=== PATIENT | male | born 1955 | race Caucasian/White ===

== ENCOUNTER → 2016-07-27 | Outpatient (CLI) | payer BC ==
--- NOTE | 2016-07-27 14:31 | RADIOLOGY REPORT (SQ) ---
EXAM DESCRIPTION: U/S EXTREMITY NONVASCULAR LTD COMPLETED DATE/TIME: 07/27/2016 2:11 pm REASON FOR STUDY: GENERALIZED ENLARGED LYMPH NODES (R59.1) R59.1 GENERALIZED ENLARGED LYMPH NODES COMPARISON: CT abdomen and pelvis 05/04/2016 TECHNIQUE: Static and real time suarez scale ultrasound Doppler spectral analysis, and color Doppler a cquired in the right and left axilla LIMITATIONS: None. FINDINGS: Right and left axilla ultrasound was performed to evaluate for adenopathy. If significant less nodes were found, ultrasound-guided biopsy was requested. Patient was scanned by both myself as well as the technologist On the right side, a benign-appearing 1.7 x 1.2 x 0.9 cm axillary lymph node is present. No worrisom e features of cortical thickening or loss of central hilar fat. No increased vascularity. Biopsy wa s not performed. On the left side, a benign-appearing 1.7 x 1.6 x 0.9 cm axillary lymph node is present. No worrisome features of cortical thickening or loss of central hilar fat. No increased vascularity. Biopsy was not performed. IMPRESSION: NO SIGNIFICANT FINDING IN THE RIGHT OR LEFT AXILLA. NO AXILLARY LYMPH NODE BIOPSY WAS P ERFORMED TODAY. TECHNICAL DOCUMENTATION: JOB ID: [id number] [employer]- All Rights Reserved
== END ==
LOC: EDSTATUS 07:54 → RAD 12:05 → EDSTATUS 12:08
PROVIDERS: ATTEND Internal Medicine Medical Oncology
DX: R59.1 Generalized enlarged lymph nodes (principal)
CPT/HCPCS: 76882

== ENCOUNTER 2020-02-18 21:41 | Observation (INO) | payer BC ==
[2020-02-18] MEDS ORDERED: RINGERS SOLUTION,LACTATED 1,000 ML IV ONE (22:04)
--- NOTE | 2020-02-18 22:05 | ER Document Report ---
ED Medical Screen (RME) - General Chief Complaint: High Blood Sugar Stated Complaint: ELEVATED BLOOD SUGAR Time Seen by Provider: 02/18/20 22:00 Mode of Arrival: Ambulatory Information source: Patient Notes: HPI; 64-year-old male presents to the emergency room with elevated blood sugars. States over the past several days he has had increased thirst. States he checked his blood sugar at home it was 597. Takes Metformin for his diabetes states has not missed any of his doses. He denies any shortness of breath, difficulty breathing. No chest pain, no COVID-19 exposure PE: Alert and oriented x3. Lungs: Clear to auscultation without rales, rhonchi, wheezes. Heart: Regular rate rhythm without murmurs, rubs, gallops. I have greeted and performed a rapid initial assessment of this patient. A comprehensive ED assessment and evaluation of the patient, analysis of test results and completion of the medical decision making process will be conducted by additional ED providers. I have specifically instructed the patient or family members with the patient to immediately return to any nursing staff should anything change in the patient's condition or with their chief complaint. TRAVEL OUTSIDE OF THE [place] IN LAST 30 DAYS: No - Related Data Allergies/Adverse Reactions: No Known Allergies Allergy (Verified 02/18/20 21:50) Home Medications: "BLOOD SUGAR MEDS" Past Medical History - Social History Frequency of alcohol use: Rare Drug Abuse: None - Past Medical History Cardiac Medical History: Reports: Hx Hypertension - DX ABOUT 10 YEARS AGO Renal/ Medical History: Denies: Hx Peritoneal Dialysis GI Medical History: Reports: Hx Gastroesophageal Reflux Disease - DX ABOUT EIGHT YEARS Psychiatric Medical History: Reports: Hx Depression - ABOUT FOUR YEARS Past Surgical History: Reports: Hx Abdominal Surgery - HERNIA (AT AGE 4). Denies: Hx Adenoidectomy Course - Laboratory Results Laboratory Results Interpreted: 02/18/20 21:44 POC Glucose > 550 H*
[2020-02-18 23:28] LABS: ABSOLUTE EOSINOPHILS # (AUTO) 0.2 10^3/uL (0.0-0.6); ABSOLUTE LYMPHOCYTES (AUTO) 1.8 10^3/uL (0.5-4.7); ABSOLUTE MONOCYTES (AUTO) 0.3 10^3/uL (0.1-1.4); ABSOLUTE NEUT (AUTO) 2.5 10^3/uL (1.7-8.2); BASOPHILS % (AUTO) 0.4 % (0-2); EOSINOPHILS % (AUTO) 4.7 % (0-6); HEMATOCRIT 37.6 % (37.9-51.0); HEMOGLOBIN 13.3 g/dL (13.5-17.0); LYMPHOCYTES % (AUTO) 37.1 % (13-45); MEAN CORPUSCULAR HGB CONC 35.4 g/dL (32.0-36.0); MEAN CORPUSCULAR VOLUME 88 fl (80-97); MONOCYTES % (AUTO) 6.7 % (3-13); PLATELET COUNT 170 10^3/uL (150-450); RED BLOOD COUNT 4.29 10^6/uL (4.35-5.55); SEGMENTED NEUTROPHILS % (AUTO) 51.1 % (42-78); TOTAL CELLS COUNTED % (AUTO) 100 %; WHITE BLOOD COUNT 4.9 10^3/uL (4.0-10.5)
[2020-02-18 23:36] LABS: APPEARANCE,URINE CLEAR; BILIRUBIN,URINE NEGATIVE (NEGATIVE); COLOR,URINE STRAW; GLUCOSE, URINE >=500 mg/dL (NEGATIVE); KETONES,URINE NEGATIVE (NEGATIVE); LEUKOCYTE ESTERASE,URINE NEGATIVE (NEGATIVE); NITRITE,URINE NEGATIVE (NEGATIVE); PROTEIN,URINE NEGATIVE (NEGATIVE); URINE SPECIFIC GRAVITY 1.029; UROBILINOGEN,URINE NEGATIVE mg/dL (<2.0)
[2020-02-18 23:38] LABS: VENOUS BLOOD BASE EXCESS -3.2 mmol/L; VENOUS BLOOD HCO3 21.7 mmol/L (20-32); VENOUS BLOOD PH 7.36 (7.30-7.42)
[2020-02-18 23:47] LABS: ALBUMIN 4.5 g/dL (3.5-5.0); ALKALINE PHOSPHATASE 371 U/L (38-126); ANION GAP 13 (5-19); ASPARTATE AMINO TRANSFERASE 75 U/L (17-59); BILIRUBIN,DIRECT 0.2 mg/dL (0.0-0.4); BILIRUBIN,TOTAL 0.6 mg/dL (0.2-1.3); BLOOD UREA NITROGEN 25 mg/dL (7-20); CALCIUM 9.5 mg/dL (8.4-10.2); CARBON DIOXIDE 26 mmol/L (22-30); CHLORIDE 91 mmol/L (98-107); POTASSIUM 4.1 mmol/L (3.6-5.0); TOTAL PROTEIN 7.5 g/dL (6.3-8.2)
--- NOTE | 2020-02-18 23:56 | RADIOLOGY REPORT (SQ) ---
CHEST X-RAY 2 view on 02/18/2020 at 11:18 PM CLINICAL INDICATION: Shortness of breath COMPARISON: None FINDINGS: The lungs are clear. Cardiac, hilar and mediastinal contours are within normal limits. Pulmonary vascularity is within normal limits. No bony abnormality is noted. IMPRESSION: No active disease.
--- NOTE | 2020-02-18 23:56 | ER Document Report ---
ED General - General Chief Complaint: High Blood Sugar Stated Complaint: ELEVATED BLOOD SUGAR Time Seen by Provider: 02/18/20 22:00 Primary Care Provider: SHIVANI BAKER FNP-C [Primary Care Provider] - Follow up as needed Mode of Arrival: Ambulatory Information source: Patient Notes: Patient presents to the ER for evaluation of increased thirst over the last brennon ral days. The patient states he does take Metformin for type 2 diabetes. He states he had a physical approximately 1 month ago at which time his blood sugar was approximately 180. He states he does not routinely check his blood sugar. He began to feel generally unwell today and his bought a glucometer and they found his sugar to be 597 at home. The patient has noticed some activity intolerance and increased shortness of breath as well as worsening in his usual far sighted vision over the last several weeks. He denies chest pain. He denies cough or congestion. He denies fever. He denies abdominal pain. He denies dysuria. Nursing notes reviewed and past medical, social, and family histories reviewed and validated. TRAVEL OUTSIDE OF THE [place] IN LAST 30 DAYS: No - Related Data Allergies/Adverse Reactions: No Known Allergies Allergy (Verified 02/18/20 21:50) Home Medications: "BLOOD SUGAR MEDS" Past Medical History - General Information source: Patient - Social History Smoking Status: Never Smoker Chew tobacco use (# tins/day): No Frequency of alcohol use: Rare Drug Abuse: None Lives with: Family Family History: Reviewed & Not Pertinent Patient has suicidal ideation: No Patient has homicidal ideation: No - Past Medical History Cardiac Medical History: Reports: Hx Hypertension - DX ABOUT 10 YEARS AGO Pulmonary Medical History: Reports: None EENT Medical History: Reports: None Neurological Medical History: Reports: None Endocrine Medical History: Reports: Hx Diabetes Mellitus Type 2 Renal/ Medical History: Denies: Hx Peritoneal Dialysis Malignancy Medical History: Reports None GI Medical History: Reports: Hx Gastroesophageal Reflux Disease - DX ABOUT EIGHT YEARS Musculoskeletal Medical History: Reports None Skin Medical History: Reports None Psychiatric Medical History: Reports: Hx Depression - ABOUT FOUR YEARS Traumatic Medical History: Reports: None Infectious Medical History: Reports: None Past Surgical History: Reports: Hx Abdominal Surgery - HERNIA (AT AGE 4). Denies: Hx Adenoidectomy - Immunizations Immunizations up to date: Yes Hx Diphtheria, Pertussis, Tetanus Vaccination: Yes Review of Systems - Review of Systems Notes: Constitutional: Negative for fever. HENT: Negative for sore throat. Eyes: Positive for visual changes over the last week. Cardiovascular: Negative for chest pain. Respiratory: Positive for occasional shortness of breath. Gastrointestinal: Negative for abdominal pain, vomiting or diarrhea. Genitourinary: Negative for dysuria. Musculoskeletal: Negative for back pain. Skin: Negative for rash. Neurological: Negative for headaches, weakness or numbness. 10 point ROS negative except as marked above and in HPI. Physical Exam - Vital signs Vitals: BP 130/84 H 02/18/20 23:48 - Notes Notes: CONSTITUTIONAL: Well appearing. No acute distress. SKIN: Warm, dry, and intact without rash EYES: Extraocular movements are grossly intact, clear conjunctiva HENT: Normocephalic, atraumatic, moist mucus membranes NECK: No obvious swelling, normal range of motion PULMONARY: Normal chest rise and fall. Breath sounds clear and equal alfredo aterally. No respiratory distress or stridor CARDIOVASCULAR: Regular rate. No murmurs, rubs, gallops. Distal extremities are warm and well perfused. ABDOMINAL: Soft, nontender NEUROLOGIC: Normal speech, moves all extremities. MUSCULOSKELETAL: No gross deformities, atraumatic PSYCHIATRIC: Normal mood and affect Course - Vital Signs Vital signs: Temp Pulse Resp BP Pulse Ox 121/70 02/19/20 04:18 - Laboratory Results Result Diagrams: 02/18/20 23:03 02/18/20 23:03 Laboratory Results Interpreted: 02/18/20 02/18/20 02/18/20 21:44 23:03 23:03 RBC 4.29 L Hgb 13.3 L Hct 37.6 L Sodium 130.0 L Chloride 91 L BUN 25 H Creatinine 1.47 H Est GFR ( Amer) 59 L Est GFR (MDRD) Non-Af 49 L Glucose 681 H* POC Glucose > 550 H* AST 75 H ALT 107 H Alkaline Phosphatase 371 H Urine Glucose (UA) 02/18/20 02/19/20 23:03 03:09 RBC Hgb Hct Sodium Chloride BUN Creatinine Est GFR ( Amer) Est GFR (MDRD) Non-Af Glucose POC Glucose 479 H* AST ALT Alkaline Phosphatase Urine Glucose (UA) >=500 H Critical Laboratory Results Reviewed: Yes Attending or Supervising Physician who Reviewed Labs: POLA MOSES - Radiology Results Critical Radiology Results Reviewed: No Critical Results - Consults Hospitalist consult Time consulted: 05:20 Reason for consultation: 02/19/20 05:20 This case was discussed with Dr. Denney who agrees to evaluate the patient in the emergency room for admission. Discharge - Discharge Clinical Impression: Type 2 diabetes mellitus with hyperglycemia Qualifiers: Diabetes mellitus roasterman insulin use: without senior living use Qualified Code(s): E11.65 - Type 2 diabetes mellitus with hyperglycemia Condition: Stable Disposition: ADMITTED OBSERVATION
[2020-02-19 00:09] LABS: GLUCOSE 681 mg/dL (75-110)
[2020-02-19] MEDS ORDERED: NORMAL SALINE 1000 ML 1,000 ML IV ONE (00:37)
[2020-02-19] MEDS ORDERED: DEXTROSE 40% GEL 15 GM TUBE PO PRN ×2 (03:25)
[2020-02-19] MEDS ORDERED: DEXTROSE 50%-WATER 25 GM/50 ML DISP.SYRIN IV PRN ×2 (03:25)
[2020-02-19] MEDS ORDERED: GLUCAGON,HUMAN RECOMB 1 MG INJ IM PRN (03:25)
[2020-02-19] MEDS ORDERED: INSULIN REG, HUMAN 100 UNIT/ML 3 ML VIAL (PYX) ONE (05:24)
[2020-02-19] MEDS ORDERED: TEMAZEPAM 7.5 MG CAPSULE PO PRN (05:38)
[2020-02-19] MEDS ORDERED: ONDANSETRON HCL INJ/PF 4 MG/2 ML SDV IV PRN (05:38)
[2020-02-19] MEDS ORDERED: IPRATROPIUM/ALBUTEROL 0.5-2.5 MG/3 ML AMPUL NEB PRN (05:38)
[2020-02-19] MEDS ORDERED: ACETAMINOPHEN 325 MG TABLET PO PRN (05:38)
[2020-02-19] MEDS ORDERED: PROMETHAZINE HCL INJ 25 MG/1 ML VIAL IV PRN (05:38)
[2020-02-19] MEDS ORDERED: NORMAL SALINE 1000 ML 1,000 ML IV PRN (05:38)
[2020-02-19] MEDS ORDERED: OXYCODONE-ACETAMINOPHEN 5-325 MG TABLET PO PRN (05:38)
[2020-02-19] MEDS: NORMAL SALINE 100 ML with INSULIN REGULAR, HUMAN 100 UNIT IV PRN ×6 (05:43→14:21)
--- NOTE | 2020-02-19 06:05 | PDOC H&P ---
History of Present Illness Admission Date/PCP: CALLUM MARTINEZ History of Present Illness: STONE ORTIZ is a 64 year old male past medical history of hypertension, diabetes, hyperlipidemia, presenting to ED after noticing high blood sugars on home monitoring. Patient is stating that he has been feeling thirsty for the last several days, having polyuria, polydipsia, blurry vision and neurolyse fatigue, today he received his glucometer and when he checked his sugar at home it was 597, patient has history of diabetes for the last 15 years, takes metformin however has poor diet, last hemoglobin A1c was about 8%, denies any fever, chills, nausea, vomiting, chest pain, shortness of breath, constipation. Past Medical History Cardiac Medical History: Reports: Hypertension - DX ABOUT 10 YEARS AGO Pulmonary Medical History: Reports: None EENT Medical History: Reports: None Neurological Medical History: Reports: None Endocrine Medical History: Reports: Diabetes Mellitus Type 2 Malignancy Medical History: Reports: None GI Medical History: Reports: Gastroesophageal Reflux Disease - DX ABOUT EIGHT YEARS Musculoskeltal Medical History: Reports: None Skin Medical History: Reports: None Psychiatric Medical History: Reports: Depression - ABOUT FOUR YEARS Traumatic Medical History: Reports: None Infectious Medical History: Reports: None Social History Lives with: Family Smoking Status: Never Smoker Family History Family History: Reviewed & Not Pertinent Parental Family History Reviewed: Yes Children Family History Reviewed: Yes Sibling(s) Family History Reviewed.: Yes Medication/Allergy Home Medications: Dexilant 01/08/11 Hydralazine HCl 01/08/11 Zoloft 01/08/11 Fluoxetine HCl [Prozac] 10 mg PO 03/16/13 Ondansetron HCl [Zofran] 4 mg PO Q4HP PRN #20 tablet 05/04/16 Oxycodone HCl/Acetaminophen [Percocet 5-325 mg Tablet] 1 - 2 tab PO ASDIR PRN #15 tab 05/04/16 Tamsulosin HCl [Flomax 0.4 mg Cap.sr] 0.4 mg PO DAILY #7 cap.sr.24h 05/04/16 Allergies/Adverse Reactions: No Known Allergies Allergy (Verified 02/18/20 21:50) Review of Systems Review of Systems: as per hpi Physical Exam Vital Signs: Temp Pulse Resp BP Pulse Ox 121/70 02/19/20 04:18 Intake & Output 02/17/20 02/18/20 02/19/20 06:59 06:59 06:59 Intake Total 2000 Balance 2000 Weight 124.738 kg General appearance: PRESENT: morbidly obese Head exam: PRESENT: atraumatic, normocephalic Respiratory exam: PRESENT: clear to auscultation alfredo. ABSENT: rales, rhonchi, wheezes Cardiovascular exam: PRESENT: RRR. ABSENT: diastolic murmur, rubs, systolic murmur GI/Abdominal exam: PRESENT: normal bowel sounds, soft. ABSENT: distended, guarding, mass, organolmegaly, rebound, tenderness Neurological exam: PRESENT: alert, awake, oriented to person, oriented to place, oriented to time, oriented to situation, CN II-XII grossly intact. ABSENT: motor sensory deficit Results Laboratory Results: 02/18/20 23:03 02/18/20 23:03 02/18/20 02/18/20 02/18/20 23:03 23:03 23:03 WBC 4.9 RBC 4.29 L Hgb 13.3 L Hct 37.6 L MCV 88 MCH 31.0 MCHC 35.4 RDW 13.0 Plt Count 170 Seg Neutrophils % 51.1 VBG pH 7.36 VBG pCO2 39.0 VBG HCO3 21.7 VBG Base Excess -3.2 Sodium 130.0 L Potassium 4.1 Chloride 91 L Carbon Dioxide 26 Anion Gap 13 BUN 25 H Creatinine 1.47 H Est GFR ( Amer) 59 L Glucose 681 H* Calcium 9.5 Total Bilirubin 0.6 AST 75 H Alkaline Phosphatase 371 H Total Protein 7.5 Albumin 4.5 Urine Color Urine Appearance Urine pH Ur Specific [place] Urine Protein Urine Glucose (UA) Urine Ketones Urine Blood Urine Nitrite Ur Leukocyte Esterase Urine WBC (Auto) 02/18/20 23:03 WBC RBC Hgb Hct MCV MCH MCHC RDW Plt Count Seg Neutrophils % VBG pH VBG pCO2 VBG HCO3 VBG Base Excess Sodium Potassium Chloride Carbon Dioxide Anion Gap BUN Creatinine Est GFR ( Amer) Glucose Calcium Total Bilirubin AST Alkaline Phosphatase Total Protein Albumin Urine Color STRAW Urine Appearance CLEAR Urine pH 6.0 Ur Specific [place] 1.029 Urine Protein NEGATIVE Urine Glucose (UA) >=500 H Urine Ketones NEGATIVE Urine Blood NEGATIVE Urine Nitrite NEGATIVE Ur Leukocyte Esterase NEGATIVE Urine WBC (Auto) 0 02/18/20 23:03 Troponin I < 0.012 Impressions: Chest X-Ray 02/18/20 22:54 IMPRESSION: No active disease. Assessment and Plan - Diagnosis (1) Hyperglycemia Is this a current diagnosis for this admission?: Yes Plan: Due to uncontrolled diabetes. Presented with glucose level of 681. Normal anion gap. Aggressive volume restriction guided by volume status. Insulin drip to be transition to subcutaneous insulin once euglycemic. We will obtain hemoglobin A1c, if more than 10% patient may need to be discharged on insulin. Diabetic education. (2) Uncontrolled diabetes mellitus Qualifiers: Diabetes mellitus type: type 2 Is this a current diagnosis for this admission?: Yes Plan: History of uncontrolled diabetes. Diabetic diet, Accu-Chek, hypoglycemia protocol. Basal, prandial and correctional insulin. Adjust insulin as needed. Diabetic education. (3) Hyperlipidemia Is this a current diagnosis for this admission?: Yes Plan: Resume home meds. Will obtain lipid panel. (4) Hypertension Is this a current diagnosis for this admission?: Yes Plan: Resume home meds. Adjust meds as needed. Outpatient PCP follow-up. (5) NGUYEN (acute kidney injury) Is this a current diagnosis for this admission?: Yes Plan: Denies any history of CAD. Likely due to intravascular volume depletion due to severe hyperglycemia. Volume resuscitation guided by volume status. Monitor volume status and electrolytes. Replace electrolytes as needed. If no improvement obtain renal ultrasound and consult nephrology. Avoid nephrotoxic meds. - Time Time Spent with patient: 35 or more minutes Anticipated Discharge Disposition: Home, Self Care Anticipated Discharge Timeframe: within 24 hours
[2020-02-19] MEDS: HEPARIN SOD (PORCINE) 5,000 UNIT/ML 1 ML VIAL SUBCUT SCH ×3 (06:23→22:18)
[2020-02-19 08:57] LABS: CHOLESTEROL 170.61 mg/dL (0-200); TRIGLYCERIDES 336 mg/dL (<150)
[2020-02-19 08:58] LABS: ANION GAP 6 (5-19); BLOOD UREA NITROGEN 21 mg/dL (7-20); CALCIUM 9.3 mg/dL (8.4-10.2); CARBON DIOXIDE 31 mmol/L (22-30); CHLORIDE 100 mmol/L (98-107); GLUCOSE 370 mg/dL (75-110); POTASSIUM 3.8 mmol/L (3.6-5.0)
--- NOTE | 2020-02-19 09:07 | EKG REPORT ---
SEVERITY:- OTHERWISE NORMAL ECG - SINUS RHYTHM VENTRICULAR PREMATURE COMPLEX : Confirmed by: Raymond Waite MD 19-Feb-2020 09:06:39
[2020-02-19 09:08] LABS: DIRECT LDL 66 mg/dL (<100)
[2020-02-19 09:12] LABS: VLDL CHOLESTEROL 67.2 mg/dL (10-31)
[2020-02-19] MEDS ORDERED: INSULIN GLARGINE,HUM.REC.ANLOG 1,000 UNIT/10 ML VIAL (PYX) SUBCUT ONE ×2 (13:00→16:15)
[2020-02-19] MEDS: DOCUSATE SODIUM 100 MG CAPSULE PO SCH (15:45)
[2020-02-19] MEDS: FAMOTIDINE 20 MG TABLET PO SCH ×2 (15:45→22:18)
[2020-02-19] MEDS: METFORMIN HCL 500 MG TABLET PO SCH ×2 (15:46→17:02)
[2020-02-20] MEDS: HEPARIN SOD (PORCINE) 5,000 UNIT/ML 1 ML VIAL SUBCUT SCH ×2 (05:16→15:00)
[2020-02-20 07:58] LABS: ANION GAP 7 (5-19); BLOOD UREA NITROGEN 18 mg/dL (7-20); CARBON DIOXIDE 25 mmol/L (22-30); CHLORIDE 105 mmol/L (98-107); GLUCOSE 234 mg/dL (75-110); POTASSIUM 3.7 mmol/L (3.6-5.0)
[2020-02-20] MEDS ORDERED: GLIMEPIRIDE 1 MG TABLET PO SCH (08:00)
[2020-02-20] MEDS: INSULIN LISPRO 100 UNIT/ML 3 ML VIAL SUBCUT SCH ×2 (08:51→12:02)
[2020-02-20] MEDS: METFORMIN HCL 500 MG TABLET PO SCH (08:52)
[2020-02-20] MEDS: DOCUSATE SODIUM 100 MG CAPSULE PO SCH (09:03)
[2020-02-20] MEDS: FAMOTIDINE 20 MG TABLET PO SCH (09:03)
--- NOTE | 2020-02-20 11:05 | PDOC DISCHARGE SUMMARY ---
Impression - Admit/DC Date/PCP Admission Date/Primary Care Provider: 02/19/20 06:06 CALLUM MARTINEZ Discharge Date: 02/20/20 - Discharge Diagnosis (1) Type 2 diabetes mellitus with hyperglycemia Is this a current diagnosis for this admission?: Yes (2) NGUYEN (acute kidney injury) Is this a current diagnosis for this admission?: Yes (3) Hypertriglyceridemia Is this a current diagnosis for this admission?: Yes (4) Hypertension Is this a current diagnosis for this admission?: Yes - Additional Information Discharge Diet: Diabetic Discharge Activity: Activity As Tolerated Referrals: SHIVANI BAKER FNP-C [Primary Care Provider] - 02/27/20 9:00 am Prescriptions: Glimepiride 2 mg PO DAILY #30 tablet Metformin HCl [Glucophage 850 mg Tablet] 850 mg PO BIDACBS #60 tab Home Medications: Amlodipine Besylate [Norvasc 10 mg Tablet] 10 mg PO QPM 02/19/20 Fenofibrate Nanocrystallized [Fenofibrate] 145 mg PO QPM 02/19/20 Gabapentin [Neurontin 400 mg Capsule] 2,000 mg PO QHS 02/19/20 Gabapentin [Neurontin 400 mg Capsule] 400 mg PO DAILY 02/19/20 Losartan/Hydrochlorothiazide [Losartan-Hctz 100-25 mg Tab] 1 each PO DAILY 02/19/20 Omeprazole 10 mg PO QPM 02/19/20 Sertraline HCl [Zoloft 50 mg Tablet] 100 mg PO QPM 02/19/20 Glimepiride 2 mg PO DAILY #30 tablet 02/20/20 Metformin HCl [Glucophage 850 mg Tablet] 850 mg PO BIDACBS #60 tab 02/20/20 History of Present Illiness History of Present Illness: According to admitting provider: STONE ORTIZ is a 64 year old male past medical history of hypertension, diabetes, hyperlipidemia, presenting to ED after noticing high blood sugars on home monitoring. Patient is stating that he has been feeling thirsty for the last several days, having polyuria, polydipsia, blurry vision and neurolyse fatigue, today he received his glucometer and when he checked his sugar at home it was 597, patient has history of diabetes for the last 15 years, takes metformin however has poor diet, last hemoglobin A1c was about 8%, denies any fever, chills, nausea, vomiting, chest pain, shortness of breath, constipation. Hospital Course Hospital Course: Patient was admitted to the hospital with complaints of high blood glucose reading as outpatient. On presentation he was noted to be significantly hyp erglycemic with blood sugar in the 600s. There was no evidence of DKA. Patient was started on treatment for his hyperglycemia secondary to uncontrolled type 2 diabetes mellitus with IV fluids and placed on an insulin drip. Hemoglobin A1c was 8.6. Patient notably takes 500 mg of Metformin daily at home. His blood sugar improved on the insulin drip and was later discontinued yesterday. He was bridged with a dose of Lantus. I have transition patient to a new regimen of Metformin 850 mg twice a day as well as glimepiride 2 mg daily. Diabetes education done. I have discussed with patient about monitoring for any evidence of hypoglycemic symptoms. This morning patient does complain of generalized myalgias, some nausea, sore throat and mild cough. Notably, his chest x-ray and urinalysis were negative on presentation. Given this symptoms, I will check him for COVID-19 and influenza as this could be indicative of a viral syndrome. However his vital signs to remain normal he is blood oxygen level have been normal on room air so patient is still cleared for discharge. Physical Exam Vital Signs: Temp Pulse Resp BP Pulse Ox 97.8 F 77 18 146/83 H 100 02/20/20 00:46 02/20/20 07:32 02/20/20 07:32 02/20/20 07:32 02/20/20 07:32 Intake & Output 02/19/20 02/20/20 02/21/20 06:59 06:59 06:59 Intake Total 1999 66 Balance 1999 66 Weight 124 kg 121.7 kg General appearance: PRESENT: no acute distress, cooperative Neck exam: ABSENT: JVD Respiratory exam: PRESENT: clear to auscultation alfredo, symmetrical, unlabored. ABSENT: accessory muscle use, retraction, tachypnea, wheezes Cardiovascular exam: PRESENT: +S1, +S2. ABSENT: tachycardia GI/Abdominal exam: PRESENT: soft. ABSENT: rebound, rigid, tenderness Neurological exam: PRESENT: alert, awake, oriented to person, oriented to place, oriented to time, oriented to situation Psychiatric exam: ABSENT: agitated, anxious Results Laboratory Results: WBC 4.9 10^3/uL (4.0-10.5) 02/18/20 23:03 RBC 4.29 10^6/uL (4.35-5.55) L 02/18/20 23:03 Hgb 13.3 g/dL (13.5-17.0) L 02/18/20 23:03 Hct 37.6 % (37.9-51.0) L 02/18/20 23:03 MCV 88 fl (80-97) 02/18/20 23:03 MCH 31.0 pg (27.0-33.4) 02/18/20 23: MCHC 35.4 g/dL (32.0-36.0) 02/18/20 23:03 RDW 13.0 % (11.5-14.0) 02/18/20 23:03 Plt Count 170 10^3/uL (150-450) 02/18/20 23:03 Lymph % (Auto) 37.1 % (13-45) 02/18/20 23:03 [place] % (Auto) 6.7 % (3-13) 02/18/20 23:03 Eos % (Auto) 4.7 % (0-6) 02/18/20 23:03 Baso % (Auto) 0.4 % (0-2) 02/18/20 23:03 Absolute Neuts (auto) 2.5 10^3/uL (1.7-8.2) 02/18/20 23:03 Absolute Lymphs (auto) 1.8 10^3/uL (0.5-4.7) 02/18/20 23:03 Absolute Monos (auto) 0.3 10^3/uL (0.1-1.4) 02/18/20 23:03 Absolute Eos (auto) 0.2 10^3/uL (0.0-0.6) 02/18/20 23:03 Absolute Basos (auto) 0.0 10^3/uL (0.0-0.2) 02/18/20 23:03 Seg Neutrophils % 51.1 % (42-78) 02/18/20 23:03 VBG pH 7.36 (7.30-7.42) 02/18/20 23:03 VBG pCO2 39.0 mmHg (35-63) 02/18/20 23:03 VBG HCO3 21.7 mmol/L (20-32) 02/18/20 23:03 VBG Base Excess -3.2 mmol/L 02/18/20 23:03 Sodium 136.6 mmol/L (137-145) L 02/20/20 06:45 Potassium 3.7 mmol/L (3.6-5.0) 02/20/20 06:45 Chloride 105 mmol/L (98-107) 02/20/20 06:45 Carbon Dioxide 25 mmol/L (22-30) 02/20/20 06:45 Anion Gap 7 (5-19) 02/20/20 06:45 BUN 18 mg/dL (7-20) 02/20/20 06:45 Creatinine 1.11 mg/dL (0.52-1.25) 02/20/20 06:45 Est GFR ( Amer) > 60 (>60) 02/20/20 06:45 Est GFR (MDRD) Non-Af > 60 (>60) 02/20/20 06:45 Glucose 234 mg/dL (75-110) H 02/20/20 06:45 POC Glucose 236 mg/dL (70-110) H 02/20/20 06:57 Hemoglobin A1c % 8.6 % (4.7-6.0) H 02/19/20 08:32 Calcium 9.0 mg/dL (8.4-10.2) 02/20/20 06:45 Magnesium 2.0 mg/dL (1.6-2.3) 02/20/20 06:45 Total Bilirubin 0.6 mg/dL (0.2-1.3) 02/18/20 23:03 Direct Bilirubin 0.2 mg/dL (0.0-0.4) 02/18/20 23:03 Neonat Total Bilirubin Not Reportable 02/18/20 23:03 Neonat Direct Bilirubin Not Reportable 02/18/20 23:03 Neonat Indirect Bili Not Reportable 02/18/20 23:03 AST 75 U/L (17-59) H 02/18/20 23:03 ALT 107 U/L (<50) H 02/18/20 23:03 Alkaline Phosphatase 371 U/L (38-126) H 02/18/20 23:03 Troponin I < 0.012 ng/mL 02/18/20 23:03 Total Protein 7.5 g/dL (6.3-8.2) 02/18/20 23:03 Albumin 4.5 g/dL (3.5-5.0) 02/18/20 23:03 Triglycerides 336 mg/dL (<150) H 02/19/20 08:32 Cholesterol 170.61 mg/dL (0-200) 02/19/20 08:32 LDL Cholesterol Direct 66 mg/dL (<100) 02/19/20 08:32 VLDL Cholesterol 67.2 mg/dL (10-31) H 02/19/20 08:32 HDL Cholesterol 39 mg/dL (>40) L 02/19/20 08:32 TSH 4.69 uIU/mL (0.47-4.68) H 02/18/20 23:03 Urine Color STRAW 02/18/20 23:03 Urine Appearance CLEAR 02/18/20 23:03 Urine pH 6.0 (5.0-9.0) 02/18/20 23:03 Ur Specific [place] 1.029 02/18/20 23:03 Urine Protein NEGATIVE mg/dL (NEGATIVE) 02/18/20 23:03 Urine Glucose (UA) >=500 mg/dL (NEGATIVE) H 02/18/20 23:03 Urine Ketones NEGATIVE mg/dL (NEGATIVE) 02/18/20 23:03 Urine Blood NEGATIVE (NEGATIVE) 02/18/20 23:03 Urine Nitrite NEGATIVE (NEGATIVE) 02/18/20 23:03 Urine Bilirubin NEGATIVE (NEGATIVE) 02/18/20 23:03 Urine Urobilinogen NEGATIVE mg/dL (<2.0) 02/18/20 23:03 Ur Leukocyte Esterase NEGATIVE (NEGATIVE) 02/18/20 23:03 Urine WBC (Auto) 0 /HPF 02/18/20 23:03 Squamous Epi Cells Auto <1 /HPF 02/18/20 23:03 Urine Ascorbic Acid NEGATIVE (NEGATIVE) 02/18/20 23:03 02/18/20 23:03 Troponin I < 0.012 Impressions: Chest X-Ray 02/18/20 22:54 IMPRESSION: No active disease. Plan Time Spent: Less than 30 Minutes Stroke Is this a Stroke Patient?: No Acute Heart Failure Is this a Heart Failure Patient?: No
[2020-02-20] MEDS ORDERED: INSULIN GLARGINE,HUM.REC.ANLOG 1,000 UNIT/10 ML VIAL SUBCUT ONE (12:44)
[2020-02-20 14:10] VITALS: BP 135/92
== END 2020-02-20 15:12 | disposition home or self-care (01) ==
LOC: ER 21:41 → EH 02-19 06:06 → 4S 02-19 12:46
PROVIDERS: ADMIT Internal Medicine; ATTEND Internal Medicine
DX: E11.65 Type 2 diabetes mellitus with hyperglycemia (principal); N17.9 Acute kidney failure, unspecified; E78.5 Hyperlipidemia, unspecified; I10 Essential (primary) hypertension; Z79.84 Long term (current) use of oral hypoglycemic drugs; Z79.899 Other long term (current) drug therapy; Z20.828 Contact with and (suspected) exposure to other viral communicable diseases
CPT/HCPCS: 93005; 99285; 96360; 96361 ×2; 36415 ×3; 82962 ×3; 83735; 84443; 85025; 0241U ×4; 80048 ×2; 80053; 81001; 84484; 83036; 82803; 80061; 71046; 93010; G0378 ×3; J1815 ×2; J1644 ×2; J7030; J7120; C9803